=== PATIENT | male | born 1990 | race African-American/Black ===

== ENCOUNTER 2019-02-07 09:03 | Emergency (ER) | payer OTHER ==
[~2019-02-07] VITALS: Ht 177.8 cm; Wt 72.6 kg
[~2019-02-07 09:03] MED LIST: ACETAMINOPHEN-1 EAC1 PO; IBUPROFEN 800800 M1 PO; ROBAXIN 750 MG750 M1 PO
[2019-02-07] MEDS ORDERED: NOHOMEMEDICATIONS (09:21)
[2019-02-07 09:38] VITALS: BP 126/75
== END 2019-02-07 09:38 | disposition home or self-care (01) ==
LOC: ER 09:03
DX: M54.5 Low back pain (principal); M53.3 Sacrococcygeal disorders, not elsewhere classified

== ENCOUNTER → 2020-03-19 | Emergency (ER) | payer BC, OTHER ==
[~2020-03-19] VITALS: Ht 177.8 cm; Wt 70.3 kg
[~2020-03-19] MED LIST changes: +NOHOMEMEDICATIONS; +PREDNISONE 20 M20 MG PO
[2020-03-19 14:09] VITALS: BP 128/78
== END ==
LOC: ER 14:08
DX: G56.01 Carpal tunnel syndrome, right upper limb (principal); M77.8 Other enthesopathies, not elsewhere classified; M25.531 Pain in right wrist